=== PATIENT | male | born 1995 | race African-American/Black ===

== ENCOUNTER 2020-08-31 12:56 | Emergency (ER) | payer SELFPAY ==
--- NOTE | 2020-08-31 16:40 | RAD REPORT ---
EXAM DESCRIPTION: RAD - Lumbar Spine 3 Views - 08/31/2020 4:32 pm CLINICAL HISTORY: low back pain COMPARISON: No comparisons FINDINGS: A three-view lumbar spine examination was performed. Lumbar bodies are normal in height and alignment. No fracture or acute bony process seen. No disc spa ce narrowing. No other significant findings. No pars defects identified. IMPRESSION: Negative Lumbar Spine examination.
[2020-08-31] MEDS ORDERED: HYDROCODONE/APAP 10/325 TAB ONE (17:00)
[2020-08-31] MEDS ORDERED: DIAZEPAM 5 MG TABLET ONE (17:01)
[2020-08-31] MEDS ORDERED: KETOROLAC 30 MG/ML INJ ONE (17:01)
--- NOTE | 2020-08-31 17:38 | EDPHYS ---
Physician Documentation [facility] Name: Mike Staton III Age: 25 yrs Sex: Male : 1995 Arrival Date: 08/31/2020 Time: 12:58 Bed 20 Private MD: ED Physician Eben Chandler HPI: 08/31 16:08 This 25 yrs old Black Male presents to ER via Wheelchair with complaints of Low Back jmm Pain. 16:08 The patient presents with pain that is acute. Onset: The symptoms/episode jmm began/occurred gradually, 1 week(s) ago. Modifying factors: The patient symptoms are alleviated by nothing, the patient symptoms are aggravated by movement. This is a 25 year old male with no chronic medical conditions that presents to the ED with complaints of lower back pain beginning approx 1 week ago. Patient denies known injury. Pain worsened as he was getting out of his car yesterday. Pain radiates from the lower back to the left thigh. Denies urinary or bowel issues. Denies fever. . Historical: - Allergies: 13:45 No Known Allergies; ca1 - Home Meds: 13:45 None [Active]; ca1 - PMHx: 13:45 None; ca1 - PSHx: 13:45 None; ca1 - Immunization history:: Adult Immunizations up to date, Flu vaccine is not up to date. - Social history:: Smoking status: Patient denies any tobacco usage or history of. ROS: 16:08 Constitutional: Negative for fever, chills, and weight loss, Cardiovascular: Negative jmm for chest pain, palpitations, and edema, Respiratory: Negative for shortness of breath, cough, wheezing, and pleuritic chest pain. 16:08 Back: Positive for pain with movement. 16:08 All other systems are negative. Exam: 16:08 Constitutional: This is a well developed, well nourished patient who is awake, alert, jmm and in no acute distress. Head/Face: atraumatic. Eyes: EOMI, no conjunctival erythema appreciated ENT: Moist Mucus Membranes Neck: Trachea midline, Supple Chest/axilla: Normal chest wall appearance and motion. Cardiovascular: Regular rate and rhythm. No edema appreciated Respiratory: Normal respirations, no respiratory distress appreciated Abdomen/GI: Non distended, soft Back: Normal ROM Skin: General appearance color normal MS/ Extremity: Moves all extremities, no obvious deformities appreciated, no edema noted to the lower extremities Neuro: Awake and alert, normal gait Psych: Behavior is normal, Mood is normal, Patient is cooperative and pleasant 16:08 Back: pain, that is moderate, of the lumbar area and left low back. 16:08 Musculoskeletal/extremity: ROM: intact in all extremities. 16:08 Skin: Appearance: Color: normal in color. 16:08 Neuro: Orientation: is normal, Mentation: is normal, Memory: is normal. 16:08 Psych: Behavior/mood is pleasant, cooperative. Vital Signs: 13:42 BP 140 / 81; Pulse 71; Resp 18 S; Temp 97.1(TE); Pulse Ox 100% on R/A; Weight 95.25 kg ca1 (R); Height 5 ft. 9 in. (175.26 cm) (R); Pain 8/10; 15:53 BP 139 / 80; Pulse 66; Resp 17; Pulse Ox 100% ; jl7 16:45 BP 133 / 80; Pulse 65; Resp 17; Pulse Ox 100% ; jl7 13:42 Body Mass Index 31.01 (95.25 kg, 175.26 cm) ca1 MDM: 15:57 Patient medically screened. [facility] 17:35 Data reviewed: vital signs, nurses notes. Counseling: I had a detailed discussion with hattie the patient and/or guardian regarding: the historical points, exam findings, and any diagnostic results supporting the discharge/admit diagnosis, lab results, radiology results, the need for outpatient follow up, to return to the emergency department if symptoms worsen or persist or if there are any questions or concerns that arise at home. ED course: Pain alleviated in the ED. Patient is advised to establish himself with a pcp and otherwise given strict return precautions. I do not suspect cauda equina or abscess. . 08/31 16:07 Order name: Lumbar Spine (3 Views) XRAY; Complete Time: 16:[address] [facility] 08/31 16:07 Order name: Urine Dipstick-Ancillary (obtain specimen); Complete Time: 17:[address] [facility] Administered Medications: 16:45 Drug: Ketorolac 30 mg Route: IM; Site: right deltoid; jl7 17:40 Follow up: Response: No adverse reaction aa5 16:50 Drug: Valium 5 mg Route: PO; jl7 17:40 Follow up: Response: No adverse reaction aa5 16:50 Drug: Whitman 10 mg-325 mg 1 tabs Route: PO; jl7 17:40 Follow up: Response: No adverse reaction aa5 Disposition: 18:10 Co-signature as Attending Physician, Eben Chandler MD I agree with the assessment and kdr plan of care. Disposition: 08/31/20 17:37 Discharged to Home. Impression: Low back pain. - Condition is Stable. - Discharge Instructions: Back Pain, Adult. - Prescriptions for Ibuprofen 800 mg Oral Tablet - take 1 tablet by ORAL route every 8 hours As needed take with food; 30 tablet. Prednisone 20 mg Oral Tablet - take 3 tablet by ORAL route once daily for 5 days; 15 tablet. Zanaflex 4 mg Oral Tablet - take 1 tablet by ORAL route every 8 hours As needed; 20 tablet. - Medication Reconciliation Form, Thank You Letter, Antibiotic Education, Prescription Opioid Use form. - Follow up: Private Physician; When: 2 - 3 days; Reason: Recheck today's complaints, Continuance of care, Re-evaluation by your physician. Signatures: Dispatcher [employer] EDMS Eben Chandler MD MD kdr Mickail, Joel, PA PA jmm Calderon, Audri RN RN aa5 Sarah Nicole RN AMILCAR jl7 Jessica Figueroa RN AMILCAR ca1 Corrections: (The following items were deleted from the chart) 17:57 17:37 08/31/2020 17:37 Discharged to Home. Impression: Low back pain. Condition is aa5 Stable. Forms are Medication Reconciliation Form, Thank You Letter, Antibiotic Education, Prescription Opioid Use. Follow up: Private Physician; When: 2 - 3 days; Reason: Recheck today's complaints, Continuance of care, Re-evaluation by your physician. [facility]
--- NOTE | 2020-08-31 17:38 | ER ---
Nurse's Notes [facility] Name: Mike Staton III Age: 25 yrs Sex: Male : 1995 Arrival Date: 08/31/2020 Time: 12:58 Bed 20 Private MD: Diagnosis: Low back pain Presentation: 08/31 13:42 Chief complaint: Patient states: Low back pain, in the middle x 1 week but yesterday ca1 has been worse. I felt the pain shoot up my back, hard to sleep, move and do anything. Denies injury to back. Denies urinary symptoms. Coronavirus screen: Client denies travel out of the [place] in the last 14 days. At this time, the client does not indicate any symptoms associated with coronavirus-19. Ebola Screen: Patient negative for fever greater than or equal to 101.5 degrees Fahrenheit, and additional compatible Ebola Virus Disease symptoms Patient denies exposure to infectious person. Patient denies travel to an Ebola-affected area in the 21 days before illness onset. No symptoms or risks identified at this time. Initial Sepsis Screen: Does the patient meet any 2 criteria? No. Patient's initial sepsis screen is negative. Does the patient have a suspected source of infection? No. Patient's initial sepsis screen is negative. Risk Assessment: Do you want to hurt yourself or someone else? Patient reports no desire to harm self or others. Onset of symptoms was August 31, 2020. 13:42 Method Of Arrival: Wheelchair ca1 13:42 Acuity: HERNANDEZ 4 ca1 Historical: - Allergies: 13:45 No Known Allergies; ca1 - Home Meds: 13:45 None [Active]; ca1 - PMHx: 13:45 None; ca1 - PSHx: 13:45 None; ca1 - Immunization history:: Adult Immunizations up to date, Flu vaccine is not up to date. - Social history:: Smoking status: Patient denies any tobacco usage or history of. Screenin:45 Abuse screen: Denies threats or abuse. Denies injuries from another. Nutritional jl7 screening: No deficits noted. Tuberculosis screening: No symptoms or risk factors identified. Fall Risk Total Nunez Fall Scale indicates No Risk (0-24 pts). Assessment: 16:45 General: Appears in no apparent distress. uncomfortable, Behavior is calm, cooperative, jl7 appropriate for age. Pain: Complains of pain in low back area Pain currently is 8 out of 10 on a pain scale. at worst was 10 out of 10 on a pain scale. Neuro: Level of Consciousness is awake, alert, obeys commands, Oriented to person, place, time, situation. Cardiovascular: Patient's skin is warm and dry. Respiratory: Airway is patent Respiratory effort is even, unlabored, Respiratory pattern is regular, symmetrical. Derm: Skin is dry, Skin is normal, Skin temperature is warm. Musculoskeletal: Reports pain in lumbar area Pain is 8 out of 10 on a pain scale. 17:40 Reassessment: Patient states feeling better. Patient states symptoms have improved. aa5 Neuro: Level of Consciousness is awake, alert, obeys commands, Oriented to person, place, time, situation. Respiratory: Airway is patent Respiratory effort is even, unlabored, Respiratory pattern is regular, symmetrical. Derm: Skin is dry, Skin is normal, Skin temperature is warm. Vital Signs: 13:42 BP 140 / 81; Pulse 71; Resp 18 S; Temp 97.1(TE); Pulse Ox 100% on R/A; Weight 95.25 kg ca1 (R); Height 5 ft. 9 in. (175.26 cm) (R); Pain 8/10; 15:53 BP 139 / 80; Pulse 66; Resp 17; Pulse Ox 100% ; jl7 16:45 BP 133 / 80; Pulse 65; Resp 17; Pulse Ox 100% ; jl7 13:42 Body Mass Index 31.01 (95.25 kg, 175.26 cm) ca1 ED Course: 12:58 Patient arrived in ED. as 13:45 Triage completed. ca1 13:45 Arm band placed on right wrist. ca1 14:19 Luba Bill FNP-C is PHCP. kb 14:19 Eben Chandler MD is Attending Physician. kb 15:50 Jaison Archibald PA is PHCP. jmm 15:50 Eben Chandler MD is Attending Physician. jmm 15:53 Sarah Nicole, AMILCAR is Primary Nurse. jl7 16:20 Lumbar Spine (3 Views) XRAY In Process Unspecified. EDMS 16:45 Patient has correct armband on for positive identification. Bed in low position. Call jl7 light in reach. Side rails up X 1. Pulse ox on. NIBP on. Warm blanket given. 16:45 No provider procedures requiring assistance completed. jl7 17:40 Patient did not have IV access during this emergency room visit. aa5 Administered Medications: 16:45 Drug: Ketorolac 30 mg Route: IM; Site: right deltoid; jl7 17:40 Follow up: Response: No adverse reaction aa5 16:50 Drug: Valium 5 mg Route: PO; jl7 17:40 Follow up: Response: No adverse reaction aa5 16:50 Drug: Pinson 10 mg-325 mg 1 tabs Route: PO; jl7 17:40 Follow up: Response: No adverse reaction aa5 Outcome: 17:37 Discharge ordered by . hattie 17:40 Discharged to home via wheelchair, with family. aa5 17:40 Condition: stable 17:40 Discharge instructions given to patient, Instructed on discharge instructions, follow up and referral plans. medication usage, Demonstrated understanding of instructions, follow-up care, medications, Prescriptions given X 3. 17:43 Patient left the ED. aa5 Signatures: Dispatcher [employer] EDMS Luba Bill, PATENT PROSECUTION ATTORNEY-C PATENT PROSECUTION ATTORNEY-CkJaison Watkins PA PA jmm Martinez, Amelia as Calderon, Audri, RN RN aa5 Sarah Nicole RN RN jl7 Jessica Figueroa RN RN ca1 Corrections: (The following items were deleted from the chart) 17:57 17:57 Patient left the ED. aa5 aa5
== END 2020-08-31 17:57 | disposition home or self-care (01) ==
LOC: ER 12:56
DX: M54.5 Low back pain (principal)
CPT/HCPCS: 72100; 96372; 99284

== ENCOUNTER 2021-07-29 11:52 | Emergency (ER) | payer SELFPAY ==
--- NOTE | 2021-07-29 12:53 | RAD REPORT ---
EXAM DESCRIPTION: RAD - Hand Right 3 View - 07/29/2021 12:27 pm CLINICAL HISTORY: Right hand pain status post injury FINDINGS: Oblique fracture distal diaphysis fifth metacarpal. Moderate displacement of fracture frag ments with angulation present at the fracture site. No dislocation
--- NOTE | 2021-07-29 13:29 | EDPHYS ---
Physician Documentation [facility] Name: Mike Staton III Age: 26 yrs Sex: Male : 1995 Arrival Date: 07/29/2021 Time: 11:53 Bed 11 Private MD: ED Physician Wyatt Stark HPI: 07/29 12:32 This 26 yrs old Black Male presents to ER via Ambulatory with complaints of Hand Injury.ma2 12:45 This 26 yrs old Black Male presents to ER via Ambulatory with complaints of Hand Injury.ma2 12:45 The patient or guardian reports a contusion, decreased range of motion. Onset: The ma2 symptoms/episode began/occurred suddenly, 1 hour(s) ago. Associated signs and symptoms: Pertinent negatives: fever, numbness distally, tingling distally. Severity of symptoms: At their worst the symptoms were moderate, in the emergency department the symptoms are unchanged. The patient has not experienced similar symptoms in the past. Historical: - Allergies: 12:02 No Known Allergies; aa5 - PMHx: 12:02 None; aa5 - PSHx: 12:02 None; aa5 - Immunization history:: Last tetanus immunization: unknown. - Social history:: Smoking status: Patient denies any tobacco usage or history of. ROS: 12:46 Constitutional: Negative for fever, chills, and weight loss. ma2 12:46 All other systems are negative. Exam: 12:46 Constitutional: This is a well developed, well nourished patient who is awake, alert, ma2 and in no acute distress. Head/Face: Normocephalic, atraumatic. Eyes: Pupils equal round and reactive to light, extra-ocular motions intact. Lids and lashes normal. Conjunctiva and sclera are non-icteric and not injected. Cornea within normal limits. Periorbital areas with no swelling, redness, or edema. ENT: Nares patent. No nasal discharge, no septal abnormalities noted. Tympanic membranes are normal and external auditory canals are clear. Oropharynx with no redness, swelling, or masses, exudates, or evidence of obstruction, uvula midline. Mucous membranes moist. 13:21 Neck: Trachea midline, no thyromegaly or masses palpated, and no cervical ma2 lymphadenopathy. Supple, full range of motion without nuchal rigidity, or vertebral point tenderness. No Meningismus. Chest/axilla: Normal chest wall appearance and motion. Nontender with no deformity. No lesions are appreciated. Cardiovascular: Regular rate and rhythm with a normal S1 and S2. No gallops, murmurs, or rubs. Normal PMI, no JVD. No pulse deficits. Back: No spinal tenderness. No costovertebral tenderness. Full range of motion. Skin: Warm, dry with normal turgor. Normal color with no rashes, no lesions, and no evidence of cellulitis. MS/ Extremity: right hand swelling and ttp over 4 and 5 th metacarpal, there is puncture wound and ttp, neurovascular intact.. Pulses equal, no cyanosis. Neurovascular intact. Full, normal range of motion. Neuro: Awake and alert, GCS 15, oriented to person, place, time, and situation. Cranial nerves II-XII grossly intact. Motor strength 5/5 in all extremities. Sensory grossly intact. Cerebellar exam normal. Normal gait. Vital Signs: 12:02 BP 130 / 89; Pulse 83; Resp 18 S; Temp 98.0(TE); Pulse Ox 100% on R/A; Weight 99.79 kg aa5 (R); Height 5 ft. 6 in. (167.64 cm) (R); 12:02 Body Mass Index 35.51 (99.79 kg, 167.64 cm) aa5 MDM: 12:06 Patient medically screened. [facility] 13:21 Differential diagnosis: dislocation, open fracture, contusion, abrasion, tendonitis. [facility] 13:24 Data reviewed: vital signs, nurses notes. Counseling: I had a detailed discussion with ma2 the patient and/or guardian regarding: the historical points, exam findings, and any diagnostic results supporting the discharge/admit diagnosis, the presence of at least one elevated blood pressure reading (>120/80) during this emergency department visit, the need to transfer to another facility, no hand surgeon available in the er . 13:27 Response to treatment: the patient's symptoms have markedly improved after treatment. [facility] 13:27 ED course: discussed with dr. Eisenberg he advised he is out of town, will transfer for [facility] a higher level of care . ED course: discussed with dr. Padilla. 07/29 12:07 Order name: XRAY Hand RIGHT 3 View; Complete Time: 12:55 ma2 07/29 13:10 Order name: IV Start; Complete Time: 13:20 ma2 07/29 13:10 Order name: NPO; Complete Time: 13:12 ma2 07/29 13:54 Order name: Wound Care; Complete Time: 13:58 ss 07/29 13:54 Order name: Volar Wrist Splint; Complete Time: 13:58 ss Administered Medications: 13:24 Drug: Ancef (cefazolin) 1 grams Route: IVPB; Site: left antecubital; aa5 14:26 Follow up: IV Status: Completed infusion ss 13:24 Drug: Tetanus-Diphtheria Toxoid Adult 0.5 ml {Manager Meeting: [employer]. Exp: aa5 02/10/2023. Lot #: [id number]. } Route: IM; Site: right deltoid; 13:58 Follow up: Response: No adverse reaction ss 13:24 Drug: NS 0.9% 1000 ml Route: IV; Rate: 1 bolus; Site: left antecubital; aa5 14:26 Follow up: IV Status: Completed infusion; IV Intake: 1000ml ss 13:24 Drug: Ketorolac 30 mg Route: IVP; Site: left antecubital; aa5 14:26 Follow up: Response: No adverse reaction ss Disposition Summary: 07/29/21 13:29 Transfer Ordered Transfer Location: [facility] ma2 Reason: Higher level of care ma2 Condition: Stable ma2 Problem: new ma2 Symptoms: are unchanged ma2 Accepting Physician: Hand surgery, Dr. Patrick(07/29/21 14:26) ss Diagnosis - Displaced fracture of neck of fifth metacarpal bone, right hand - OPEN ma2 Forms: - Medication Reconciliation Form ma2 - SBAR form ma2 Signatures: Dispatcher [employer] Mer Vasquez RN RN aa5 Yani Alonzo RN RN ss Wyatt Stark MD MD ma2 Corrections: (The following items were deleted from the chart) 14: 13:29 Hand surgery, Dr. Patrick ma2 ss
--- NOTE | 2021-07-29 13:29 | ER ---
Nurse's Notes [facility] Name: Mike Staton III Age: 26 yrs Sex: Male : 1995 Arrival Date: 07/29/2021 Time: 11:53 Bed 11 Private MD: Diagnosis: Displaced fracture of neck of fifth metacarpal bone, right hand-OPEN Presentation: 07/29 12:01 Chief complaint: Patient states: "I was messing with truck and hit my hand". Swelling aa5 noted to right hand, small laceration noted to top of hand with mild bleeding, dressing applied. Coronavirus screen: At this time, the client does not indicate any symptoms associated with coronavirus-19. Ebola Screen: No symptoms or risks identified at this time. Initial Sepsis Screen: Does the patient meet any 2 criteria? No. Patient's initial sepsis screen is negative. Does the patient have a suspected source of infection? No. Patient's initial sepsis screen is negative. Risk Assessment: Do you want to hurt yourself or someone else? Patient reports no desire to harm self or others. Onset of symptoms was July 29, 2021. 12:01 Method Of Arrival: Ambulatory aa5 12:01 Acuity: HERNANDEZ 3 aa5 Historical: - Allergies: 12:02 No Known Allergies; aa5 - PMHx: 12:02 None; aa5 - PSHx: 12:02 None; aa5 - Immunization history:: Last tetanus immunization: unknown. - Social history:: Smoking status: Patient denies any tobacco usage or history of. Screenin:05 Abuse screen: Denies threats or abuse. Denies injuries from another. Nutritional ss screening: No deficits noted. Tuberculosis screening: Never had TB. Fall Risk None identified. Assessment: 12:04 General: Appears uncomfortable, Behavior is calm, cooperative. Pain: Complains of pain aa5 in right hand. Neuro: Level of Consciousness is awake, alert, obeys commands, Oriented to person, place, time, situation. Cardiovascular: Patient's skin is warm and dry. Respiratory: Airway is patent Respiratory effort is even, unlabored, Respiratory pattern is regular, symmetrical. GI: No signs and/or symptoms were reported involving the gastrointestinal system. : No signs and/or symptoms were reported regarding the genitourinary system. EENT: No signs and/or symptoms were reported regarding the EENT system. Derm: Skin is pink, warm \\T\\ dry. Musculoskeletal: Swelling present in dorsum of right hand. Injury Description: Laceration sustained to dorsum of right hand is approximately 0.5 cm long in size. a small amount of bleeding noted at this time. 13:53 Reassessment: Report given to Yola at [facility] ER. Awaiting for EMS for ss transportation. 13:59 Reassessment: Patient appears in no apparent distress at this time. Patient and/or ss family updated on plan of care and expected duration. Pain level reassessed. Patient is alert, oriented x 3, equal unlabored respirations, skin warm/dry/pink. Vital Signs: 12:02 BP 130 / 89; Pulse 83; Resp 18 S; Temp 98.0(TE); Pulse Ox 100% on R/A; Weight 99.79 kg aa5 (R); Height 5 ft. 6 in. (167.64 cm) (R); 12:02 Body Mass Index 35.51 (99.79 kg, 167.64 cm) aa5 ED Course: 11:53 Patient arrived in ED. am2 12:01 Arm band placed on. aa5 12:02 Triage completed. aa5 12:05 Mer Webber, AMILCAR is Primary Nurse. aa5 12:05 Patient has correct armband on for positive identification. Bed in low position. Call ss light in reach. 12:06 Wyatt Stark MD is Attending Physician. ma2 12:27 XRAY Hand RIGHT 3 View In Process Unspecified. EDMS 13:12 initiated a transfer with Milana Drew Rn from the [facility] Transfer center. eb 13:18 Inserted saline lock: 20 gauge in left antecubital area, using aseptic technique. 3 13:22 connected the hand surgeon construction driller for [facility] ER with Dr. Stark for eb patient transfer consultation. 13:32 administrative approval given by Roni Renner Rn/ patient has been accepted to eb [facility] ER/ Dr. Domenico Jones has accepted the patient in transfer/ report to be called to [phone]. 14:24 No provider procedures requiring assistance completed. Patient transferred, IV remains ss in place. Orthoglass splint: Volar splint applied on right arm. Administered Medications: 13:24 Drug: Ancef (cefazolin) 1 grams Route: IVPB; Site: left antecubital; aa5 14:26 Follow up: IV Status: Completed infusion ss 13:24 Drug: Tetanus-Diphtheria Toxoid Adult 0.5 ml {[employer]ive[employer]: [employer]. Exp: aa5 02/10/2023. Lot #: [id number]. } Route: IM; Site: right deltoid; 13:58 Follow up: Response: No adverse reaction ss 13:24 Drug: NS 0.9% 1000 ml Route: IV; Rate: 1 bolus; Site: left antecubital; aa5 14:26 Follow up: IV Status: Completed infusion; IV Intake: 1000ml ss 13:24 Drug: Ketorolac 30 mg Route: IVP; Site: left antecubital; aa5 14:26 Follow up: Response: No adverse reaction ss Intake: 14:26 IV: 1000ml; Total: 1000ml. ss Outcome: 13:29 ER care complete, transfer ordered by MD. cordova 14:24 Transferred by ground EMS to [facility], Transfer form completed. X-rays sent ss w/ patient. 14:24 Condition: good 14:24 Instructed on the need for transfer. 14:26 Patient left the ED. ss Signatures: Dispatcher [employer] EDMS Mer Webber RN RN aa5 Yani Alonzo RN RN ss Jocy Parry Deanna 3 Wyatt Stark MD MD ma2 Botello, Elizabeth eb Corrections: (The following items were deleted from the chart) 13:26 12:01 Acuity: HERNANDEZ 4 aa5 aa5
[2021-07-29] MEDS ORDERED: NA CHLORIDE 0.9% 1,000 ML ONE (14:14)
[2021-07-29] MEDS ORDERED: KETOROLAC 30 MG/ML INJ ONE (14:14)
[2021-07-29] MEDS ORDERED: CEFAZOLIN SODIUM 1 GM/VIAL ONE (14:14)
[2021-07-29] MEDS ORDERED: TETANUS & DIPHTHERIA TOX,ADULT 0.5 ML VIAL ONE (14:14)
[2021-07-29 14:41] VITALS: BP 130/89; TEMP 98; O2SAT 100
== END 2021-07-29 14:26 | disposition short-term general hospital (02) ==
LOC: ER 11:52
PROC: 2W3CX1Z Immobilization of Right Lower Arm using Splint (ICD-10-PCS; principal; 2021-07-29)
DX: S62.336B Displaced fracture of neck of fifth metacarpal bone, right hand, initial encounter for open fracture (principal); W22.8XXA Striking against or struck by other objects, initial encounter; Z23 Encounter for immunization
CPT/HCPCS: 90471; 90714; 96365; 96375; 99285; J0690; J7030

== ENCOUNTER 2022-11-05 09:04 | Emergency (ER) | payer BC ==
--- NOTE | 2022-11-05 09:44 | EDPHYS ---
Physician Documentation [facility] Name: Mike Staton III Age: 27 yrs Sex: Male : 1995 Arrival Date: 11/05/2022 Time: 09:10 Bed 12 Private MD: ED Physician Ora Mancuso HPI: 11/05 09:47 This 27 yrs old Black Male presents to ER via Ambulatory with complaints of Toe Pain. snw 09:47 Onset: The symptoms/episode began/occurred suddenly. Associated signs and symptoms: snw Pertinent positives: tenderness, pressure. The patient has not experienced similar symptoms in the past. The patient has not recently seen a physician. Historical: - Allergies: 09:26 No Known Allergies; ph - PMHx: :26 None; ph - Immunization history:: Adult Immunizations unknown. - Social history:: Smoking status: Patient reports the use of cigarette tobacco products, denies chronic smoking, but will smoke occasionally, Reported history of juuling and/or vaping. ROS: 09:47 MS/extremity: Positive for pain, tenderness, of the right first toe. snw Exam: 09:46 Constitutional: This is a well developed, well nourished patient who is awake, alert, snw and in no acute distress. Head/Face: Normocephalic, atraumatic. Eyes: Pupils equal round and reactive to light, extra-ocular motions intact. Lids and lashes normal. Conjunctiva and sclera are non-icteric and not injected. Cornea within normal limits. Periorbital areas with no swelling, redness, or edema. Neck: Trachea midline, no thyromegaly or masses palpated, and no cervical lymphadenopathy. Supple, full range of motion without nuchal rigidity, or vertebral point tenderness. No Meningismus. Chest/axilla: Normal chest wall appearance and motion. Nontender with no deformity. No lesions are appreciated. Cardiovascular: Regular rate and rhythm with a normal S1 and S2. No gallops, murmurs, or rubs. Normal PMI, no JVD. No pulse deficits. Respiratory: Lungs have equal breath sounds bilaterally, clear to auscultation and percussion. No rales, rhonchi or wheezes noted. No increased work of breathing, no retractions or nasal flaring. Skin: Warm, dry with normal turgor. Normal color with no rashes, no lesions, and no evidence of cellulitis. Neuro: Awake and alert, GCS 15, oriented to person, place, time, and situation. Cranial nerves II-XII grossly intact. Motor strength 5/5 in all extremities. Sensory grossly intact. Cerebellar exam normal. Normal gait. Psych: Awake, alert, with orientation to person, place and time. Behavior, mood, and affect are within normal limits. 09:46 Musculoskeletal/extremity: Extremities: grossly normal except: noted in the right first toe: tenderness, ingrowing nail for great toe. Vital Signs: 09:23 BP 142 / 91; Pulse 89; Resp 18; Temp 97.8; Pulse Ox 99% on R/A; Weight 99.79 kg; Height ph 5 ft. 6 in. (167.64 cm); 09:23 Body Mass Index 35.51 (99.79 kg, 167.64 cm) ph MDM: 09:23 Patient medically screened. snw 09:47 Differential diagnosis: bacterial infection, ingrown nail, gout, stub. Data reviewed: snw vital signs, nurses notes. I considered the following discharge prescriptions or medication management in the emergency department Medications were administered in the Emergency Department. See MAR. Counseling: I had a detailed discussion with the patient and/or guardian regarding: the historical points, exam findings, and any diagnostic results supporting the discharge/admit diagnosis, the presence of at least one elevated blood pressure reading (>120/80) during this emergency department visit, to return to the emergency department if symptoms worsen or persist or if there are any questions or concerns that arise at home, smoking cessation. Special discussion: I have referred the patient to see his PCP for further evaluation of high blood pressure. Based on the history and exam findings, there is no indication for further emergent testing or inpatient evaluation. I discussed with the patient/guardian the need to see the primary care provider for further evaluation of the symptoms. 11/05 09:43 Order name: Post-op shoe; Complete Time: 10:04 snw Administered Medications: 10:04 Drug: Colcrys (colchicine) 1.2 mg Route: PO; ss 10:09 Follow up: Response: Medication administered at discharge. ss 10:04 Drug: Bactrim (trimethoprim-sulfamethoxazole) (160 mg-800 mg (DS) 1 tablet Route: PO; 10:09 Follow up: Response: Medication administered at discharge. Disposition: 09:49 Chart complete. snw Disposition Summary: 11/05/22 09:44 Discharge Ordered Location: Home snw Condition: Stable snw Diagnosis - Pain in left toe(s) snw - Elevated blood-pressure reading, without diagnosis of hypertension snw Followup: snw - With: Emergency Department - When: As needed - Reason: Worsening of condition Followup: snw - With: Private Physician - When: 2 - 3 days - Reason: Recheck today's complaints, Continuance of care, Re-evaluation by your physician Discharge Instructions: - Discharge Summary Sheet snw - Gout snw - Hypertension, Adult snw - Low-Purine Eating Plan snw - How to Take Your Blood Pressure, [id number] snw - Ingrown Toenail snw - DASH Eating Plan snw - Heat Therapy, [id number] snw - Form - Blood Pressure Record Sheet snw - Foot Pain snw Forms: - Medication Reconciliation Form snw - Thank You Letter snw - Antibiotic Education snw - Prescription Opioid Use snw - Work release form Prescriptions: - Mobic 7.5 mg Oral Tablet - take 1 tablet by ORAL route once daily take with food; 20 tablet; Refills: 0, snw Product Selection Permitted - Bactrim DS 800-160 mg Oral Tablet - take 1 tablet by ORAL route every 12 hours for 10 days; 20 tablet; Refills: 0, snw Product Selection Permitted Signatures: Kimberlee Laboy, DIFFUSER OPERATOR-C DIFFUSER OPERATOR-Csnw Yani Alonzo RN RN Deedee Gonzalez RN RN ph
--- NOTE | 2022-11-05 09:44 | ER ---
Nurse's Notes [facility] Name: Mike Staton III Age: 27 yrs Sex: Male : 1995 Arrival Date: 11/05/2022 Time: 09:10 Bed 12 Private MD: Diagnosis: Pain in left toe(s);Elevated blood-pressure reading, without diagnosis of hypertension Presentation: 11/05 09:23 Chief complaint: Patient states: R great toe pain that started last night, denies ph injury or swelling. Coronavirus screen: Vaccine status: Patient reports receiving the 2nd dose of the covid vaccine. Ebola Screen: No symptoms or risks identified at this time. Initial Sepsis Screen: Does the patient meet any 2 criteria? No. Patient's initial sepsis screen is negative. Does the patient have a suspected source of infection? No. Patient's initial sepsis screen is negative. Risk Assessment: Do you want to hurt yourself or someone else? Patient reports no desire to harm self or others. Onset of symptoms was November 05, 2022. 09:23 Method Of Arrival: Ambulatory :23 Acuity: HERNANDEZ 4 ph Triage Assessment: 09:26 General: Appears in no apparent distress. comfortable, well groomed, Behavior is calm, ph cooperative, appropriate for age, Denies fever, feeling ill. Pain: Complains of pain in right first toe. Historical: - Allergies: : No Known Allergies; ph - PMHx: : None; ph - Immunization history:: Adult Immunizations unknown. - Social history:: Smoking status: Patient reports the use of cigarette tobacco products, denies chronic smoking, but will smoke occasionally, Reported history of juuling and/or vaping. Screenin:08 [facility] ED Fall Risk Assessment (Adult) History of falling in the last 3 months, ss including since admission No falls in past 3 months (0 pts). Abuse screen: Denies threats or abuse. Denies injuries from another. Nutritional screening: No deficits noted. Tuberculosis screening: Never had TB. Assessment: 10:07 General: Appears in no apparent distress. comfortable, Behavior is calm, cooperative. ss Pain: Complains of pain in left first toe and Left first toenail. Neuro: Level of Consciousness is awake, alert, obeys commands. Respiratory: Airway is patent Respiratory effort is even, unlabored, Respiratory pattern is regular, symmetrical. Derm: Skin is pink, warm \T\ dry. normal. Musculoskeletal: Range of motion: intact in all extremities, Swelling absent. Vital Signs: 09:23 BP 142 / 91; Pulse 89; Resp 18; Temp 97.8; Pulse Ox 99% on R/A; Weight 99.79 kg; Height ph 5 ft. 6 in. (167.64 cm); 09:23 Body Mass Index 35.51 (99.79 kg, 167.64 cm) ph ED Course: 09:10 Patient arrived in ED. rg4 09:12 Kimberlee Laboy FNP-C [facility] snw 09:12 Ora Mancuso MD is Attending Physician. snw 09:26 Triage completed. ph 09:30 Arm band placed on Patient placed in waiting room, Patient notified of wait time. ph 09:41 Yani Alonzo RN is Primary Nurse. ss 10:06 No provider procedures requiring assistance completed. Patient did not have IV access ss during this emergency room visit. Ortho shoe applied to left foot. 10:08 Patient has correct armband on for positive identification. ss Administered Medications: 10:04 Drug: Colcrys (colchicine) 1.2 mg Route: PO; ss 10:09 Follow up: Response: Medication administered at discharge. ss 10:04 Drug: Bactrim (trimethoprim-sulfamethoxazole) (160 mg-800 mg (DS) 1 tablet Route: PO; ss 10:09 Follow up: Response: Medication administered at discharge. ss Outcome: 09:44 Discharge ordered by MD. snw 10:06 Discharged to home ambulatory. ss 10:06 Condition: good 10:06 Discharge instructions given to patient, Instructed on discharge instructions, follow up and referral plans. medication usage, Demonstrated understanding of instructions, follow-up care, medications, Prescriptions given X 2. 10:09 Patient left the ED. ss Signatures: Kimberlee Laboy FNP-C RN EMBEDDED-Csnw Yani Alonzo RN RN Deedee Gonzalez RN RN Tamia Menezes [id number]
[2022-11-05] MEDS ORDERED: COLCHICINE 0.6 MG TAB ONE (10:01)
[2022-11-05] MEDS ORDERED: SMZ./TMP. 800/160 MG TABLET ONE (10:01)
[2022-11-05 10:14] VITALS: BP 142/91; TEMP 97.8; O2SAT 99
== END 2022-11-05 10:09 | disposition home or self-care (01) ==
LOC: ER 09:04
DX: M79.674 Pain in right toe(s) (principal); R03.0 Elevated blood-pressure reading, without diagnosis of hypertension; F17.210 Nicotine dependence, cigarettes, uncomplicated